=== PATIENT | female | born 2000 ===

== ENCOUNTER 2021-10-04 21:14 | Emergency (ER) | payer SELFPAY ==
[2021-10-05 00:07] LABS: Bilirubin,Urine NEG (Negative); Blood,Urine NEG (Negative); Color,Urine Yellow (Yellow); Mucus,Urine FEW /HPF; Protein,Urine <15 mg/dL mg/dL (Negative)
[2021-10-05 00:39] LABS: Red Cell Distribution Width 13.6 % (13.2-15.2)
[2021-10-05 00:46] LABS: Hematocrit 40.7 % (30.3-42.9); Hemoglobin 13.9 gm/dl (10.1-14.3); Mean Corpuscular HGB Conc 34 % (30-34); Mean Corpuscular Volume 85 fl (79-97); Platelet Count 227 K/mm3 (140-440); Red Blood Count 4.81 M/mm3 (3.65-5.03)
[2021-10-05] MEDS ORDERED: ONDANSETRON 4 MG/2 ML INJ IV ONE (00:52)
[2021-10-05] MEDS ORDERED: KETOROLAC 30 MG/1 ML INJ IV ONE (00:52)
[2021-10-05 00:58] LABS: Albumin 5.2 g/dL (3.9-5); Blood Urea Nitrogen 11 mg/dL (7-17); Calcium 9.9 mg/dL (8.4-10.2); Hemolysis Index 8
[2021-10-05 01:03] LABS: Alanine Aminotransferase < 5 units/L (7-56); BUN/Creatinine Ratio 18
--- NOTE | 2021-10-05 02:45 | Emergency Department Report ---
ED Abdominal Pain HPI - General Chief Complaint: Abdominal Pain Stated Complaint: SEVERE ABD PAIN Source: patient Mode of arrival: Ambulatory Limitations: No Limitations - History of Present Illness Initial Comments: Patient is a nulliparous 21-year-old female with no past medical history presents to the ED with complaint of acute onset persistent diffuse low abdominal pain with nausea and vomiting intermittently for the last 5 days. Patient states that in the last 2 days the pain got worse. Patient denies diarrhea, dysuria, urinary frequency and urgency, vaginal bleeding, vaginal discharge, dyspareunia, chest pain or shortness of breath, fever, chills, hemato chezia, cough, sore throat or headache. MD Complaint: abdominal pain (Diffuse lower abdominal pain) -: Sudden, days(s) (5) Location: diffuse, suprapubic Radiation: back (Low back pain) Migration to: no migration Severity scale (0 -10): 7 Quality: cramping, sharp Consistency: constant Improves With: nothing Worsens With: nothing Associated Symptoms: denies other symptoms, nausea, vomiting. denies: diarrhea, fever, chills, constipation, dysuria, hematochezia, melena, hematuria, anorexia, syncope - Related Data LMP Date: 09/22/21 Previous Rx's Medication Instructions Recorded Last Taken Type Dicyclomine [Bentyl] 20 mg PO Q6H #24 tablet 10/05/21 Unknown Rx Ondansetron [Zofran Odt] 4 mg PO Q8HR PRN #15 tab.rapdis 10/05/21 Unknown Rx Allergies Allergy/AdvReac Type Severity Reaction Status Date / Time No Known Allergies Allergy Unverified 10/04/21 23:24 ED Review of Systems ROS: Stated complaint: SEVERE ABD PAIN Other details as noted in HPI Constitutional: denies: chills, fever Eyes: denies: eye pain, eye discharge, vision change ENT: denies: ear pain, throat pain Respiratory: denies: cough, shortness of breath, wheezing Cardiovascular: denies: chest pain, palpitations Endocrine: no symptoms reported Gastrointestinal: abdominal pain (Diffuse low abdominal pain), nausea, vomiting. denies: diarrhea, constipation, hematemesis Genitourinary: denies: urgency, dysuria, discharge Musculoskeletal: denies: back pain, joint swelling, arthralgia Skin: denies: rash, lesions Neurological: denies: headache, weakness, paresthesias Psychiatric: denies: anxiety, depression Hematological/Lymphatic: denies: easy bleeding, easy bruising ED Past Medical Hx - Social History Smoking Status: Never Smoker Substance Use Type: Marijuana - Medications Home Medications: Home Medications Medication Instructions Recorded Confirmed Last Taken Type Dicyclomine [Bentyl] 20 mg PO Q6H #24 tablet 10/05/21 Unknown Rx Ondansetron [Zofran Odt] 4 mg PO Q8HR PRN #15 tab.rapdis 10/05/21 Unknown Rx ED Physical Exam - General Limitations: No Limitations General appearance: alert, in no apparent distress - Head Head exam: Present: atraumatic, normocephalic, normal inspection - Eye Eye exam: Present: normal appearance, PERRL, EOMI Pupils: Present: normal accommodation - ENT ENT exam: Present: normal exam, normal orophraynx, mucous membranes moist, TM's normal bilaterally, normal external ear exam - Neck Neck exam: Present: normal inspection, full ROM - Respiratory Respiratory exam: Present: normal lung sounds bilaterally. Absent: respiratory distress, wheezes, rhonchi, stridor, chest wall tenderness, accessory muscle use, decreased breath sounds, prolonged expiratory - Cardiovascular Cardiovascular Exam: Present: regular rate, normal rhythm, normal heart sounds. Absent: systolic murmur, diastolic murmur, rubs, gallop - GI/Abdominal GI/Abdominal exam: Present: soft, tenderness (Mild diffuse lower abdominal tenderness), normal bowel sounds. Absent: guarding, rebound, hyperactive bowel sounds, hypoactive bowel sounds, organomegaly - Bi-manual exam: Present: other (Pelvic exam deferred) - Extremities Exam Extremities exam: Present: normal inspection, full ROM, normal capillary refill - Back Exam Back exam: Present: normal inspection, full ROM. Absent: tenderness, CVA tenderness (R), muscle spasm, paraspinal tenderness, vertebral tenderness - Neurological Exam Neurological exam: Present: alert, oriented X3, CN II-XII intact, normal gait, reflexes normal - Psychiatric Psychiatric exam: Present: normal affect, normal mood - Skin Skin exam: Present: warm, dry, intact, normal color. Absent: rash ED Course Vital Signs 10/04/21 10/05/21 23:22 01:02 Temperature 98.2 F Pulse Rate 74 Respiratory 18 16 Rate Blood Pressure 97/65 O2 Sat by Pulse 100 Oximetry ED Medical Decision Making - Lab Data Result diagrams: 10/05/21 00:05 10/05/21 00:05 - Medical Decision Making This is a nulliparous 21-year-old female with no past medical history presents to the ED with complaint of acute onset persistent diffuse low abdominal pain with nausea and vomiting intermittently for the last 5 days. Patient states that in the last 2 days the pain got worse. In the ED, patient i s alert and oriented x3 and is not in any distress. Patient was treated for pain in the ED. Lab test results were reviewed and are all nonactionable. Patient however declined abdomen pelvis CT scan with IV contrast. Patient was therefore discharged home on medications and advised to follow-up with her primary care physician in 7 to 10 days for reevaluation or return to the ED immediately if symptoms get worse. - Differential Diagnosis UTI; ; ovarian cyst; appendicitis; kidney stones Critical care attestation.: If time is entered above; I have spent that time in minutes in the direct care of this critically ill patient, excluding procedure time. ED Disposition Clinical Impression: Acute bilateral lower abdominal pain, Nausea and vomiting in adult patient Disposition: 01 HOME / SELF CARE / HOMELESS Is pt being admited?: No Does the pt Need Aspirin: No Condition: Stable Instructions: Abdominal Pain (ED), Abdominal Pain, Adult, [id number], Nausea and Vomiting, Adult, [id number] Additional Instructions: All lab test results were reviewed and are all nonactionable. You opted to decline abdomen pelvis CT scan with IV contrast. However if your symptoms get worse, return to the ED immediately for further evaluation. Otherwise follow-up with your primary care physician in 5 to 7 days for reevaluation. Prescriptions: Dicyclomine [Bentyl] 20 mg PO Q6H #24 tablet Ondansetron [Zofran Odt] 4 mg PO Q8HR PRN #15 tab.rapdis PRN Reason: Nausea Referrals: [facility] [Provider Group] - 3-5 Days Time of Disposition: 02:43 Print Language: JAPANESE
[2021-10-05 04:12] LABS: Basophils % (Manual) 0 % (0.0-1.8); Hypochromasia 1+; Platelet Estimate Consistent w Auto; Total Cells Counted 100
[2021-10-05 04:17] VITALS: BP 94/64
== END 2021-10-05 04:17 | disposition home or self-care (01) ==
LOC: ED 21:14
DX: R10.31 Right lower quadrant pain (principal); R10.32 Left lower quadrant pain; R11.2 Nausea with vomiting, unspecified; Z79.899 Other long term (current) drug therapy
CPT/HCPCS: 36415; 80053; 81001; 84703; 85007; 85025; 96374; 96375; 99283; J1885; J2405